=== PATIENT | female | born 1990 | race Caucasian/White ===

== ENCOUNTER 2018-10-15 10:09 | Emergency (ER) | payer BC, OTHER ==
[2018-10-15 11:10] LABS: Urine Blood NEGATIVE (NEG); Urine Glucose NEGATIVE (NEG); Urine Protein NEGATIVE (NEG); Urine pH 8.5 (5.0-7.0)
--- NOTE | 2018-10-15 11:24 | RAD REPORT ---
EXAM DESCRIPTION: RAD - Lumbar Spine 3 Views - 10/15/2018 11:09 am CLINICAL HISTORY: Fall, back pain COMPARISON: None. FINDINGS: A three-view lumbar spine examination was performed. Lumbar bodies are normal in height. T here is no AP alignment abnormality. Very slight left lateral tilt of the upper lumbar spine is proba brodie positional. No fracture or acute bony process seen. No disc space narrowing. No facet joint abnor mality. No pars defects identified. IMPRESSION: Negative lumbar spine examination for acute bone or disc finding.
--- NOTE | 2018-10-15 11:26 | RAD REPORT ---
EXAM DESCRIPTION: RAD - Sacrum And Coccyx - 10/15/2018 11:09 am CLINICAL HISTORY: Fall, back and pelvic pain COMPARISON: Lumbar spine same date, no pelvic comparison imaging TECHNIQUE: Lateral view of the sacrum and coccyx obtained along with 10 degree caudal and 15 degree cephalic AP projections. FINDINGS: Sacral ala and SI joints are normal. No fracture of the sacrum or coccyx confirmed. The sl ight posterior angulation of the distal coccygeal segments can be seen normally. No comparison is marlyn ilable to establish stability. No acute findings at the L4-5 or L5-S1 disc levels. IMPRESSION: Sacrum and coccyx examination, as detailed above, without acute or suspicious finding.
--- NOTE | 2018-10-15 12:05 | ER ---
Nurse's Notes [facility] Name: Ama Pierre Age: 27 yrs Sex: Female : 1990 Arrival Date: 10/15/2018 Time: 10:11 Bed 15 Private MD: Diagnosis: Contusion of coccyx Presentation: 10/15 10:12 Presenting complaint: Patient states: slipped down 3 stairs and injured coccyx. c/o sv pain. Care prior to arrival: None. 10:12 Method Of Arrival: Ambulatory sv 10:12 Acuity: OSIRIS 4 sv 10:14 Transition of care: patient was not received from another setting of care. Onset of sv symptoms was October 14, 2018. 10:16 Risk Assessment: Do you want to hurt yourself or someone else? Patient reports no jl7 desire to harm self or others. Initial Sepsis Screen: Does the patient meet any 2 criteria? No. Patient's initial sepsis screen is negative. Does the patient have a suspected source of infection? No. Patient's initial sepsis screen is negative. Triage Assessment: 10:15 General: Appears in no apparent distress. uncomfortable, Behavior is calm, cooperative, sv appropriate for age. Pain: Complains of pain in buttocks Pain currently is 0 out of 10 on a pain scale. at worst was 10 out of 10 on a pain scale. Neuro: Level of Consciousness is awake, alert, obeys commands, Oriented to person, place, time, situation, Moves all extremities. Full function Gait is steady. Respiratory: Respiratory effort is even, unlabored, Respiratory pattern is regular, symmetrical. 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 - Social history:: Smoking status: Patient uses tobacco products, smokes one-half pack cigarettes per day. - Ebola Screening: : No symptoms or risks identified at this time. Screenin:31 Abuse screen: Denies threats or abuse. Denies injuries from another. Nutritional jl7 screening: No deficits noted. Tuberculosis screening: No symptoms or risk factors identified. Fall Risk None identified. Assessment: 10:31 General: Appears in no apparent distress. uncomfortable, Behavior is calm, cooperative, jl7 appropriate for age. Pain: Complains of pain in coccyx and gluteal cleft Pain does not radiate. Pain currently is 2 out of 10 on a pain scale. at worst was 10 out of 10 on a pain scale. Pain began 1 day ago. Is episodic, Aggravated by "When I sit down it hurts.". Neuro: Level of Consciousness is awake, alert, obeys commands, Oriented to person, place, time, situation. Cardiovascular: Patient's skin is warm and dry. Respiratory: Airway is patent Respiratory effort is even, unlabored, Respiratory pattern is regular, symmetrical. Derm: Skin is pink, warm \\T\\ dry. Musculoskeletal: Swelling absent. 11:30 Reassessment: No changes from previously documented assessment. Patient and/or family jl7 updated on plan of care and expected duration. Pain level reassessed. Patient is alert, oriented x 3, equal unlabored respirations, skin warm/dry/pink. Vital Signs: 10:14 BP 124 / 74; Pulse 122; Resp 20; Temp 97.8; Pulse Ox 100% ; Weight 81.65 kg; Height 5 sv ft. 3 in. (160.02 cm); Pain 10/10; 12:14 BP 125 / 75; Pulse 99; Resp 16 S; Pulse Ox 99% on R/A; jl7 10:14 Body Mass Index 31.89 (81.65 kg, 160.02 cm) sv ED Course: 10:11 Patient arrived in ED. rg4 10:14 Triage completed. sv 10:15 Keerthi Ni RN is Primary Nurse. jl7 10:15 Arm band placed on. sv 10:16 Matthew Sotomayor MD is Attending Physician. wilbert 10:17 Francesco Cummins PA is PHCP. jr8 10:25 Urine collected: clean catch specimen, clear. jl7 10:31 Patient has correct armband on for positive identification. Placed in gown. Bed in low jl7 position. Call light in reach. Side rails up X 1. 11:05 XRAY Lumbar Spine (3 Views) In Process Unspecified. EDMS 11:07 XRAY Sacrum And Coccyx In Process Unspecified. EDMS 12:14 No provider procedures requiring assistance completed. Patient did not have IV access jlJessica during this emergency room visit. Administered Medications: No medications were administered Outcome: 12:04 Discharge ordered by . [email or web address] 12:14 Discharged to home ambulatory. jlJessica 12:14 Condition: stable 12:14 Discharge instructions given to patient, Instructed on discharge instructions, follow up and referral plans. medication usage, Demonstrated understanding of instructions, follow-up care, medications, Prescriptions given X 2. 12:15 Patient left the ED. jl7 Signatures: Dispatcher [employer] EDBriana Scott, RN RN Matthew Richards MD MD cha Roszak, Josh, PA PA Agustina Dumas4 Keerthi Ni, RN RN [email or web address]
--- NOTE | 2018-10-15 12:05 | EDPHYS ---
Physician Documentation [facility] Name: Ama Pierre Age: 27 yrs Sex: Female : 1990 Arrival Date: 10/15/2018 Time: 10:11 Bed 15 Private MD: ED Physician Matthew Sotomayor HPI: 10/15 12:11 This 27 yrs old Female presents to ER via Ambulatory with complaints of Fall jr8 Injury. 12:11 Onset: The symptoms/episode began/occurred acutely, today. Associated injuries: The jr8 patient sustained buttocks. Severity of symptoms: At their worst the symptoms were moderate, in the emergency department the symptoms are unchanged. The patient has not experienced similar symptoms in the past. The patient has not recently seen a physician. Stated that she fell coming down stairs yesterday. Pain to buttock region. Has not been able to sit on buttocks post fall . 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 - Social history:: Smoking status: Patient uses tobacco products, smokes one-half pack cigarettes per day. - Ebola Screening: : No symptoms or risks identified at this time. ROS: 12:15 Eyes: Negative for injury, pain, redness, and discharge, ENT: Negative for injury, jr8 pain, and discharge, Neck: Negative for injury, pain, and swelling, Cardiovascular: Negative for chest pain, palpitations, and edema, Respiratory: Negative for shortness of breath, cough, wheezing, and pleuritic chest pain, Abdomen/GI: Negative for abdominal pain, nausea, vomiting, diarrhea, and constipation, MS/Extremity: Negative for injury and deformity, Skin: Negative for injury, rash, and discoloration, Neuro: Negative for headache, weakness, numbness, tingling, and seizure. 12:15 Back: Positive for pain at rest, pain with movement, of the lumbar area and sacrum. Exam: 12:15 Head/Face: Normocephalic, atraumatic. Eyes: Pupils equal round and reactive to light, jr8 extra-ocular motions intact. Lids and lashes normal. Conjunctiva and sclera are non-icteric and not injected. Cornea within normal limits. Periorbital areas with no swelling, redness, or edema. ENT: Nares patent. No nasal discharge, no septal abnormalities noted. Tympanic membranes are normal and external auditory canals are clear. Oropharynx with no redness, swelling, or masses, exudates, or evidence of obstruction, uvula midline. Mucous membranes moist. Neck: Trachea midline, no thyromegaly or masses palpated, and no cervical lymphadenopathy. Supple, full range of motion without nuchal rigidity, or vertebral point tenderness. No Meningismus. Chest/axilla: Normal chest wall appearance and motion. Nontender with no deformity. No lesions are appreciated. Cardiovascular: Regular rate and rhythm with a normal S1 and S2. No gallops, murmurs, or rubs. Normal PMI, no JVD. No pulse deficits. Respiratory: Lungs have equal breath sounds bilaterally, clear to auscultation and percussion. No rales, rhonchi or wheezes noted. No increased work of breathing, no retractions or nasal flaring. Abdomen/GI: Soft, non-tender, with normal bowel sounds. No distension or tympany. No guarding or rebound. No evidence of tenderness throughout. Skin: Warm, dry with normal turgor. Normal color with no rashes, no lesions, and no evidence of cellulitis. MS/ Extremity: Pulses equal, no cyanosis. Neurovascular intact. Full, normal range of motion. Neuro: Awake and alert, GCS 15, oriented to person, place, time, and situation. Cranial nerves II-XII grossly intact. Motor strength 5/5 in all extremities. Sensory grossly intact. Cerebellar exam normal. Normal gait. 12:15 Back: pain, that is moderate, of the lumbar area and sacrum, ROM is painful, normal spinal alignment noted, CVA tenderness, is absent, swelling noted to left gluteal cleft without laceration, obvious bruising, or abrasion . Vital Signs: 10:14 BP 124 / 74; Pulse 122; Resp 20; Temp 97.8; Pulse Ox 100% ; Weight 81.65 kg; Height 5 sv ft. 3 in. (160.02 cm); Pain 10/10; 12:14 BP 125 / 75; Pulse 99; Resp 16 S; Pulse Ox 99% on R/A; jl7 10:14 Body Mass Index 31.89 (81.65 kg, 160.02 cm) [facility]: 10:16 Patient medically screened. [facility] 12:02 Data reviewed: vital signs, nurses notes, radiologic studies, plain films, and as a jr8 result, I will discharge patient. Data interpreted: Pulse oximetry: on room air is 100 %. Interpretation: normal. Counseling: I had a detailed discussion with the patient and/or guardian regarding: the historical points, exam findings, and any diagnostic results supporting the discharge/admit diagnosis, radiology results, the need for outpatient follow up, a family practitioner, to return to the emergency department if symptoms worsen or persist or if there are any questions or concerns that arise at home. 10/15 10:31 Order name: Urine Dipstick--Ancillary (enter results); Complete Time: 11:27 eb 10/15 10:31 Order name: Urine --Ancillary (enter results); Complete Time: 11:27 eb 10/15 10:32 Order name: XRAY Lumbar Spine (3 Views); Complete Time: 11:27 jr8 10/15 10:32 Order name: XRAY Sacrum And Coccyx; Complete Time: 11:44 jr8 Administered Medications: No medications were administered Disposition: 16:18 Co-signature as Attending Physician, Matthew Sotomayor MD I agree with the assessment and [facility] plan of care. Disposition: 10/15/18 12:04 Discharged to Home. Impression: Contusion of coccyx . - Condition is Stable. - Discharge Instructions: Contusion. - Prescriptions for Ibuprofen 800 mg Oral Tablet - take 1 tablet by ORAL route every 12 hours As needed take with food; 20 tablet. Tylenol- Codeine #3 300-30 mg Oral Tablet - take 2 tablet by ORAL route every 6 hours As needed; 30 tablet. - Medication Reconciliation Form, Thank You Letter, Antibiotic Education, Prescription Opioid Use, Work release form form. - Follow up: Private Physician; When: 1 week; Reason: Recheck today's complaints, Continuance of care, Re-evaluation by your physician. - Problem is new. - Symptoms have improved. Signatures: Dispatcher [employer] Briana Villalta RN RN sv Anderson, Corey, MD MD cha Roszak, Josh, PA PA jr8 Ni, Jahala, RN RN jl7 Corrections: (The following items were deleted from the chart) 12:15 12:04 10/15/2018 12:04 Discharged to Home. Impression: Contusion of coccyx . Condition jl7 is Stable. Forms are Medication Reconciliation Form, Thank You Letter, Antibiotic Education, Prescription Opioid Use. Follow up: Private Physician; When: 1 week; Reason: Recheck today's complaints, Continuance of care, Re-evaluation by your physician. Problem is new. Symptoms have improved. jr8
[2018-10-15 12:20] VITALS: TEMP 97.8
[2018-10-15 12:22] VITALS: BP 125/75; O2SAT 99
== END 2018-10-15 12:15 | disposition home or self-care (01) ==
LOC: ER 10:09
DX: S30.0XXA Contusion of lower back and pelvis, initial encounter (principal); W10.9XXA Fall (on) (from) unspecified stairs and steps, initial encounter; F17.210 Nicotine dependence, cigarettes, uncomplicated
CPT/HCPCS: 72100; 72220; 81003; 81025; 99283

== ENCOUNTER 2020-11-19 00:20 | Emergency (ER) | payer BC, SELFPAY ==
[2020-11-19] MEDS ORDERED: ACETAMINOPHEN 500 MG TAB ONE (01:07)
[2020-11-19] MEDS ORDERED: TETANUS & DIPHTHERIA TOX,ADULT 0.5 ML VIAL ONE (01:07)
[2020-11-19] MEDS ORDERED: LIDOCAINE 1% MPF 5 ML VIAL ONE (03:14)
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
[2020-11-19] MEDS ORDERED: DERMABOND SKIN ADHESIVE TOP ONE (03:37)
[2020-11-19] MEDS ORDERED: CEPHALEXIN 250 MG CAP ONE (03:53)
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
== END 2020-11-19 03:51 | disposition home or self-care (01) ==
LOC: ER 00:20
PROC: 0HQ1XZZ Repair Face Skin, External Approach (ICD-10-PCS; principal; 2020-11-19)
DX: S01.81XA Laceration without foreign body of other part of head, initial encounter (principal); Y04.2XXA Assault by strike against or bumped into by another person, initial encounter; Y93.9 Activity, unspecified; Y92.019 Unspecified place in single-family (private) house as the place of occurrence of the external cause; Z23 Encounter for immunization
CPT/HCPCS: 36415; 70450; 70486; 76377; 80320; 90471; 90714; 99285; G0390